=== PATIENT | male | born 1940 | race Caucasian/White ===

== ENCOUNTER 2017-08-16 15:27 | Emergency (ER) | payer MEDICARE, BC ==
[~2017-08-16] VITALS: Ht 175.3 cm; Wt 87.1 kg
[~2017-08-16 15:27] MED LIST: ASPI81TA31 PO; LOSA100T15 PO; METF10004 PO; SIMV20TA6 PO; WARF5TAB77 PO
[2017-08-16] MEDS ORDERED: SITA100T PO (15:47)
[2017-08-16] MEDS ORDERED: KETOROLAC TROMETHAMINE 30 MG INJ IM ONE (16:15)
[2017-08-16] MEDS ORDERED: KETOROLAC TROMETHAMINE 30 MG INJ ONE (16:20)
--- NOTE | 2017-08-16 17:42 | NUR ---
Patient discharged to home in stable conditon. Written and verbal after care instructions given. Patient verbalizes understanding of instructions.PT WALKS IN STEADY GAIT. PT DENEIS ANY PAIN AT THIS POINT
[2017-08-16 17:44] VITALS: BP 149/89
== END 2017-08-16 17:45 | disposition home or self-care (01) ==
LOC: ER 15:27
DX: S32.018A Other fracture of first lumbar vertebra, initial encounter for closed fracture (principal); S32.028A Other fracture of second lumbar vertebra, initial encounter for closed fracture; E11.9 Type 2 diabetes mellitus without complications; I10 Essential (primary) hypertension; I48.91 Unspecified atrial fibrillation; E78.00 Pure hypercholesterolemia, unspecified; Z79.01 Long term (current) use of anticoagulants; Z79.84 Long term (current) use of oral hypoglycemic drugs; Z79.899 Other long term (current) drug therapy; Z79.82 Long term (current) use of aspirin; W19.XXXA Unspecified fall, initial encounter; Y93.89 Activity, other specified; Y92.89 Other specified places as the place of occurrence of the external cause; Y99.8 Other external cause status
CPT/HCPCS: 74176; 96372; 99284; A4663; J1885

== ENCOUNTER 2017-11-04 07:14 | Emergency (ER) | payer MEDICARE, BC ==
[~2017-11-04] VITALS: Ht 172.7 cm; Wt 88.5 kg
[~2017-11-04 07:14] MED LIST changes: +SITA100T PO
[2017-11-04] MEDS ORDERED: ACETAMINOPHEN 325 MG TABLET PO ONE (08:00)
[2017-11-04] MEDS ORDERED: ACETAMINOPHEN ES 500 MG TABLET ONE (08:02)
--- NOTE | 2017-11-04 09:02 | NUR ---
Patient discharged to home in stable conditon. Written and verbal after care instructions given. Patient verbalizes understanding of instructions. Strressed follow up with pmd or return to ER for worsening s/s.
== END 2017-11-04 09:03 | disposition home or self-care (01) ==
LOC: ER 07:15
DX: M54.12 Radiculopathy, cervical region (principal); E11.9 Type 2 diabetes mellitus without complications; E78.5 Hyperlipidemia, unspecified; I10 Essential (primary) hypertension; I48.91 Unspecified atrial fibrillation; M48.02 Spinal stenosis, cervical region; Z79.01 Long term (current) use of anticoagulants; Z79.82 Long term (current) use of aspirin
CPT/HCPCS: 72125; A4663; A9150

== ENCOUNTER 2018-01-07 09:09 | Emergency (ER) | payer MEDICARE, BC ==
[~2018-01-07] VITALS: Ht 167.6 cm; Wt 90.3 kg
[2018-01-07] MEDS ORDERED: DEXAMETHASONE SOD PHOSPHATE 4 MG INJ IM ONE (10:00)
[2018-01-07] MEDS ORDERED: DEXAMETHASONE SOD PHOSPHATE 10 MG INJ ONE (10:13)
--- NOTE | 2018-01-07 10:44 | NUR ---
PT WAS EVALUATED BY DR GARCIA. PT WAS D/C TO HOME. D/C INSTRUCTIONS GIVEN TO THE PT.
[2018-01-07 10:45] VITALS: BP 141/87
== END 2018-01-07 10:46 | disposition home or self-care (01) ==
LOC: ER 09:09
DX: M54.12 Radiculopathy, cervical region (principal); I10 Essential (primary) hypertension; I48.91 Unspecified atrial fibrillation; E11.9 Type 2 diabetes mellitus without complications; Z79.82 Long term (current) use of aspirin; Z79.01 Long term (current) use of anticoagulants; Z79.84 Long term (current) use of oral hypoglycemic drugs; Z79.899 Other long term (current) drug therapy
CPT/HCPCS: 36415; 85610; 96372; 99283; A4663; J1100